=== PATIENT | male | born 1935 | race Caucasian/White ===

== ENCOUNTER 2017-03-04 20:12 | Inpatient (IN) | payer OTHER ==
[~2017-03-04] VITALS: Ht 175.3 cm; Wt 82.1 kg
--- NOTE | ~2017-03-04 | P ---
[facility] [place] [address] PROCEDURE REPORT Name: DOROTHEA ESTRADA Room #: 301-I [facility] IN M.R.#: [id number] Admission: 03/04/17 Attend Phys: Carl Arana MD Discharge: 03/06/17 Date of : 36 Report #: [id number] THIS REPORT FOR: //name// CC: Carl Arana MD BRIEF HISTORY: The patient is an 82-year-old male who developed black stools and also had episode of coffee-ground emesis. He presented to [facility] and there he was admitted and now presents for upper endoscopy to evaluate for GI bleeding. He has a history of previous GI bleeding with antral ulcers. PREOPERATIVE DIAGNOSIS: Upper gastrointestinal bleeding. POSTOPERATIVE DIAGNOSES: 1. Deep nonbleeding antral ulcer. 2. Superficial linear antral ulcer. 3. Diffuse gastritis. 4. Small hiatus hernia. MEDICATIONS: Deep sedation with propofol per anesthesia. SPECIMEN: Biopsies of linear ulcer, antrum. ESTIMATED BLOOD LOSS: 3 mL. PROCEDURE: EGD with biopsy. FINDINGS: Prior to propofol sedation, procedure of upper endoscopy discussed with the patient as well as potential risks and its complications. He indicates he understands and desires to proceed. DESCRIPTION OF PROCEDURE: With the patient in left lateral decubitus position, the [employer] video endoscope was inserted in the cervical esophagus under direct vision without difficulty. Examination of this organ to its entire length revealed normal mucosa down the squamocolumnar junction. Right at the squamocolumnar junction, there were 2 focal eroded areas on opposite garcia. These changes may be result of reflux esophagitis, although he did vomit and it could represent small Chata-Wylie tears. No clot or bleeding was seen and no vessels were seen. Beyond that it is a small 2 cm sliding type hiatus hernia was seen. The mucosa and the hernia were unremarkable. No blood was seen. Scope was advanced in the stomach, which was examined on end view as well as retroflexed views. Examination of the proximal stomach on end view as well as retroflexed views revealed normal gastric folds. Upon retroflexion, no hiatus hernia was seen. Examination of distal stomach revealed some deformity in the antrum of the stomach and also on the posterior wall of the antrum was a deep nonbleeding gastric ulcer. The crater was less in the size of the scope, so was [facility] [address] [place] [address] PROCEDURE REPORT Name: DOROTHEA ESTRADA Room #: 301-I DIS IN .R.#: [id number] Admission: 03/04/17 Attend Phys: Carl Arana MD Discharge: 03/06/17 Date of : 36 Report #: [id number] probably about 7-8 mm. I could see some whitish exudate, could not clearly see the base of the ulcer. It was fairly deep. It is possible this could be a penetrating ulcer. In addition, just proximal to this ulcer crater was a superficial linear ulcer, which was about 10-12 mm in length and was not bleeding. It had a benign appearance. The pylorus, duodenal bulb and postbulbar sweep down the third portion was inspected and noted to be unremarkable. At that point, the scope was slowly withdrawn and careful circumferential views confirmed the above finding. Biopsies obtained of the linear ulcer but we avoided biopsying around the deep ulcer due to his recent bleeding. DISPOSITION: The patient with upper GI bleeding. He does have a deep ulcer as noted above. We will place him on a proton pump inhibitor. I could not see the base of the ulcer, so I can exclude an exposed vessel or small clot within the crater. Active bleeding was not seen at this time. Since I cannot see the base of the ulcer, I cannot prognosticate with regards to likelihood of recurrent gastrointestinal bleeding. We watched the patient carefully for the next day or two. He will need repeat EGD in 8 weeks to ensure healing of the ulcer. He should stay on a PPI until that exam has been completed. If he does have H. pylori, treatment with antibiotics may "cure" him of his ulcer disease. If he does not have H. pylori, he may require long-term administration of PPI for prophylaxis due to his recurrent GI bleeding. <ELECTRONICALLY SIGNED> By: Roe Sebastian MD 03/08/17 1523 1455 [id number] Roe Sebastian MD /nt
--- NOTE | ~2017-03-04 | S ---
[facility] [place] [address] SURGICAL PATH RPT PROCEDURE Name: DOROTHEA AGUIRRE Room #: 301-I ADM IN M.R.#: [id number] Admission: 03/04/17 Date of : 36 Discharge: Report #: [id number] Path Case #: [id number] PATHOLOGY REPORT COLLECTION DATE: 03/05/2017 RECEIVED DATE: 03/05/2017 SUBMITTING PHYS: Dr. Roe Sebastian OTHER PHYS: SPECIMEN(S) RECEIVED: A.Gastric ulcer * * * * * * * * * * * * FINAL DIAGNOSIS: Gastric mucosa, gastric ulcer to rule out H. pylori, endoscopic biopsy: - Moderate reactive gastropathy. - No active ulceration identified in the sampled tissue. - Negative for intestinal metaplasia or atrophy. - Negative for Helicobacter pylori. (IUV:gerda; 03/06/2017) COMMENT: Helicobacter pylori immunohistochemical stain performed on block A1 - negative. PATHOLOGIST: Ariadna Brandt M.D. REPORT ELECTRONICALLY SIGNED BY: Ariadna Brandt M.D. DATE/TIME: 03/06/2017 15:47 * * * * * * * * * * * * GROSS PATHOLOGY: Received in formalin labeled "Dorothea Aguirre, BX of gastric ulcer to r/o H. pylori," are four segments of gonzalez soft tissue measuring 0.9 x 0.6 x 0.3 cm in aggregate dimensions and ranging from 0.3 to 0.4 cm in maximum dimension. The specimen is submitted entirely in cassette A1. (TSD; 03/05/2017) CLINICAL HISTORY: GI bleed INITIAL CPT CODE(S): A; 82729, 34425 Professional services performed by [facility] at [facility] [address] [place] [address] SURGICAL PATH RPT PROCEDURE Name: DOROTHEA AGUIRRE Room #: 301-I ADM IN M.R.#: [id number] Admission: 03/04/17 Date of : 36 Discharge: Report #: [id number] Path Case #: [id number] [address] [facility] [address], [place] [address] Technical services performed by [facility] at [address] [place] [address], [facility] [address] [address]. [facility] [address] [place] [address] PHONE: [phone] DIRECTOR: Aquiles Hart M.D. * * * END OF REPORT * * *
--- NOTE | ~2017-03-04 | P ---
[facility] [place] [address] PROCEDURE REPORT Name: SEANDOROTHEA PRABHAKAR Room #: 301-I DIS IN M.R.#: [id number] Admission: 03/04/17 Attend Phys: Carl Arana MD Discharge: 03/06/17 Date of : 36 Report #: [id number] THIS REPORT FOR: //name// CC: Carl Arana DATE OF SERVICE: 03/05/2017 ADDENDUM Speaker correcting the patient name wrongly dictated at the end of the report [id number]. <ELECTRONICALLY SIGNED> By: Roe Sebastian MD 03/08/17 1523 1457 1844 Roe Sebastian MD /nt
--- NOTE | ~2017-03-04 | P ---
[facility] [place] [address] PROCEDURE REPORT Name: DOROTHEA ESTRADA Room #: 301-I ADM IN M.R.#: [id number] Admission: 03/04/17 Attend Phys: Carl Arana MD Discharge: Date of : 36 Report #: [id number] THIS REPORT FOR: //name// CC: Carl Arana MD REASON FOR CONSULTATION: The patient is an 82-year-old male with recurrent GI bleeding. HISTORY OF PRESENT ILLNESS: This patient had evidence of GI bleeding in 07/2013. He underwent upper endoscopy by Dr. Lisa Lewis and was found to have multiple small ulcers in the antrum as well as erosions of the duodenum. He was treated and did well. He had been on pantoprazole, but he said he stopped taking that years ago. About a week or so ago, he had teeth pulled. He went to have the teeth pulled but subsequently developed significant bleeding. He had to be seen in the Emergency Room by his oral surgeon about 5 days ago and underwent packing. He reports he has not had any further bleeding since that time. He was well until yesterday when he passed a stool. The stool was normal but subsequently passed several diarrhea type stools that were "leanne than black." He had several of those stools last evening and also some this morning. He developed some dizziness and lightheadedness. He did not lose consciousness. He did break out in sweats and did feel nauseated. He did have one episode of emesis and brought up some blackish material. He contacted Dr. Arana, was advised to come in the Emergency Room, which he did. He was evaluated and his electrolytes were normal and creatinine 1.3, which is his normal range. His BUN was initially 51, is 45 today. Albumin was 2.9. INR 1. White count was initially 15.5, down to 10.2 today. His hemoglobin was 11.9 yesterday, 10.2 this morning. He is feeling comfortable this time. PAST MEDICAL HISTORY: High blood pressure, elevated cholesterol, coronary artery disease with previous stent placement. He had been on Plavix and aspirin. About a month or so ago, he was told he could stop his Plavix but continue 1 baby aspirin daily. He has also had a hiatus hernia repair. ALLERGIES: No known drug allergies. CURRENT HOME MEDICATIONS: Atorvastatin 40 mg daily; in the records is listed Plavix 75 mg daily, but he tells me he stopped it; metoprolol 50 mg daily is listed; pantoprazole is also listed, but he tells me he stopped that. He did tell me he was taking lisinopril. FAMILY HISTORY: No family history of ulcer disease. SOCIAL HISTORY: Quit smoking many many years ago, typically has 1 beer per day. [address] [address] PROCEDURE REPORT Name: DOROTHEA ESTRADA Room #: 301-I ADM IN M.R.#: [id number] Admission: 03/04/17 Attend Phys: Carl Arana MD Discharge: Date of : 36 Report #: [id number] REVIEW OF SYSTEMS: GENERAL: No change in weight, fever or chills. CENTRAL NERVOUS SYSTEM: Dizziness, but not loss of consciousness, weakness or numbness. PULMONARY: No cough, pneumonia or tuberculosis. CARDIOVASCULAR: No recent chest pain, chest tightness or palpitations. GASTROINTESTINAL: Nausea, vomiting, hematemesis and melena, previous bleeding ulcers. MUSCULOSKELETAL: Multiple arthralgias. PHYSICAL EXAMINATION: GENERAL: Well-developed, well-nourished, pleasant male who is awake, alert and oriented, no acute distress. VITAL SIGNS: Blood pressure 118/70, pulse is 68. HEENT: Anicteric. Pupils equal and round. Oropharynx clear. NECK: Supple. CHEST: Clear. HEART: Regular rate and rhythm, normal S1 and S2. ABDOMEN: Normal bowel sounds, soft, nontender without hepatosplenomegaly or masses. RECTAL: Not done. EXTREMITIES: Without cyanosis, clubbing or edema. ASSESSMENT: 1. Recurrent upper gastrointestinal bleeding. 2. Recent bleeding from teeth extraction. 3. Coronary artery disease with stents, on aspirin. 4. High blood pressure. 5. Elevated cholesterol. PLAN: Upper endoscopy for further evaluation of potential source of bleeding. <ELECTRONICALLY SIGNED> By: Roe Sebastian MD 03/05/171854 1407 49 Roe Sebastian MD /nt
[~2017-03-04 20:12] MED LIST: AMLODIPINE-BEN1 EAC3 PO; ASPIRIN EC325 M1 PO; LIPITOR40 MG PO; PLAVIX 75 MG TA75 M1 PO; PROTONIX40 M2; PROTONIX40 M2 PO; TOPROL XL50 MG PO
[2017-03-04 20:15] VITALS: BP 118/70
[2017-03-04 20:33] LABS: BASOPHILS 1.1 % (0.0-2.0); EOSINOPHILS 0.5 % (0.0-3.0); HEMATOCRIT 35.8 % (42.0-52.0); HEMOGLOBIN 11.9 gm/dL (14.0-18.0); LYMPHOCYTES 20.8 % (24.0-44.0); MCH 32.4 pg (26.0-34.0); MCHC 33.2 g/dL (28.0-37.0); MCV 97.6 fL (80.0-100.0); MONOCYTES 6.7 % (1.0-8.0); PLATELET COUNT 278 thou/uL (150-400); POLYS 70.9 % (36.0-66.0); RBC 3.67 mil/uL (4.50-6.00); RDW 14.1 % (10.5-14.5); WBC 15.5 thou/uL (4.0-11.0)
[2017-03-04 20:34] LABS: CALCIUM 8.5 mg/dL (8.5-10.1); CREATININE 1.4 mg/dL (0.7-1.3); POTASSIUM 5.8 mmol/L (3.5-5.1)
[2017-03-04 20:36] LABS: MANUAL DIFF NO
[2017-03-04 20:43] LABS: ALBUMIN 2.9 g/dL (3.4-5.0); TOTAL BILIRUBIN 0.8 mg/dL (<0.1-1.0); TOTAL PROTEIN 6.6 g/dL (6.4-8.2); TROPONIN-I 0.05 ng/mL (<0.04-0.07)
[2017-03-04 20:51] LABS: APTT 24.7 Seconds (24.5-32.8); PROTIME 10.5 Seconds (9.3-11.4)
[2017-03-04 22:56] VITALS: BP 113/59
[2017-03-05 00:16] LABS: CALCIUM 7.9 mg/dL (8.5-10.1); CREATININE 1.2 mg/dL (0.7-1.3)
[2017-03-05 00:19] LABS: POTASSIUM 4.1 mmol/L (3.5-5.1)
[2017-03-05 04:00] VITALS: BP 124/88
[2017-03-05 08:00] VITALS: BP 132/57
[2017-03-05 09:34] LABS: HEMATOCRIT 30.8 % (42.0-52.0); HEMOGLOBIN 10.2 gm/dL (14.0-18.0); MCH 32.4 pg (26.0-34.0); MCHC 33.2 g/dL (28.0-37.0); MCV 97.7 fL (80.0-100.0); RBC 3.15 mil/uL (4.50-6.00); RDW 13.9 % (10.5-14.5); WBC 10.2 thou/uL (4.0-11.0)
[2017-03-05 09:38] LABS: CALCIUM 8.2 mg/dL (8.5-10.1); CREATININE 1.3 mg/dL (0.7-1.3)
[2017-03-05 16:00] VITALS: BP 126/61
[2017-03-05 19:21] VITALS: BP 132/61
[2017-03-06 04:02] VITALS: BP 113/55
[2017-03-06 06:38] LABS: HEMATOCRIT 25.4 % (42.0-52.0); HEMOGLOBIN 8.6 gm/dL (14.0-18.0); MCH 32.7 pg (26.0-34.0); MCHC 33.8 g/dL (28.0-37.0); MCV 96.6 fL (80.0-100.0); RBC 2.63 mil/uL (4.50-6.00); RDW 13.8 % (10.5-14.5); WBC 7.6 thou/uL (4.0-11.0)
[2017-03-06 08:08] VITALS: BP 143/62
[2017-03-06 08:09] VITALS: BP 143/62
[2017-03-06] MEDS ORDERED: LISINOPRIL10 MG PO (09:56)
[2017-03-06] MEDS ORDERED: COREG6.25 MG PO (09:58)
[2017-03-06] MEDS ORDERED: ASPIR 8181 MG PO (09:58)
[2017-03-06] MEDS ORDERED: PROTONIX40 M2 PO (16:13)
[2017-03-06 16:30] VITALS: BP 143/62
== END 2017-03-06 16:53 | disposition home or self-care (01) | DRG 378 ==
LOC: ER 20:12 → EROBS 22:05 → 3N 22:05
PROVIDERS: Emergency Medicine; Family Medicine
PROC: 0DB68ZX Excision of Stomach, Via Natural or Artificial Opening Endoscopic, Diagnostic (ICD-10-PCS; principal; 2017-03-05)
DX: K92.1 Melena (principal); E44.0 Moderate protein-calorie malnutrition; K25.9 Gastric ulcer, unspecified as acute or chronic, without hemorrhage or perforation; K29.70 Gastritis, unspecified, without bleeding; E78.00 Pure hypercholesterolemia, unspecified; I25.10 Atherosclerotic heart disease of native coronary artery without angina pectoris; K44.9 Diaphragmatic hernia without obstruction or gangrene; D64.9 Anemia, unspecified; I25.2 Old myocardial infarction; Z87.891 Personal history of nicotine dependence; Z95.5 Presence of coronary angioplasty implant and graft
CPT/HCPCS: 10096; 62110; 62900; 70005

== ENCOUNTER → 2020-02-23 | Outpatient (CLI) | payer OTHER ==
[~2020-02-23] MED LIST changes: +ASPIR 8181 MG PO; +COREG6.25 MG PO; +LISINOPRIL10 MG PO
== END ==
LOC: MRI 09:54
PROVIDERS: ATTEND Family Medicine
DX: M43.16 Spondylolisthesis, lumbar region (principal); N28.1 Cyst of kidney, acquired; M51.25 Other intervertebral disc displacement, thoracolumbar region; M48.07 Spinal stenosis, lumbosacral region; M51.36 Other intervertebral disc degeneration, lumbar region; M54.42 Lumbago with sciatica, left side

== ENCOUNTER → 2020-03-24 | Outpatient (CLI) | payer OTHER ==
[~2020-03-24] VITALS: Ht 175.3 cm; Wt 81.6 kg
[~2020-03-24] MED LIST changes: +ACETAMINOPHEN500 M1 PO; +ASA81BEC PO
--- NOTE | ~2020-03-24 | HPC ---
[facility] [place] [address] [place] [address] PAIN MANAGEMENT CONSULTATION Name: DOROTHEA ESTRADA Room #: [facility] Ayde.#: [id number] Admission: 03/24/20 Attend Phys: Dorothea Wylie MD Discharge: Date of : 36 Report #: [id number] THIS REPORT FOR: cc: Carl Arana MD, Neal A. MD Morgan, Richard L. MD ~ CC: Carl Wylie DATE OF SERVICE: 03/24/2020 CHIEF COMPLAINT: Low back pain radiating into the left leg. Large herniated nucleus pulposus, L4-L5. I am seeing the patient today at the request of Dr. Arana for lumbar radiculopathy on the left. Unlike many patients his pain generator is quite evident and is concordant with his MRI. The MRI performed on 02/23/2020 shows a grade 1 spondylolisthesis at L4-L5 with a large fragment of disk along the left side at the posterior aspect of the L4 vertebral body. This measures about 14 mm x 18 mm and appears to originate from the left L4-L5 disk space causing spinal stenosis and narrowing of the canal to about 5 mm. He is doing okay without weakness or numbness, but has pain with standing and walking. He gets some relief with lying down and sitting. He appears to be fairly stoic 85-year-old who has always been active. He tells me even in the summer, he was jogging! not long just 30 minutes, wow. His pain score today is a 3-5/10. Pain drawing is classic for an L4-L5 radiculopathy. MEDICATIONS: Aspirin, lisinopril, carvedilol, atorvastatin, and Tylenol 3 times daily. ALLERGIES: None. PAST MEDICAL HISTORY: Positive for hypertension. He had stents placed for coronary artery disease and on blood thinner for a period of time. His first angioplasty was in 1993! He has a second stent placed in 2013. He does not complain of chest pain at this time. He had a stroke in 1999, described as a TIA. He has also had peptic ulcer that were bleeding at one point. No problems at this time. REVIEW OF SYSTEMS: Positive for history of cataracts, cardiac stents, peptic ulcer disease, nocturia. Impacted pain score is a low 21/70. Functional goals are to be free of back and leg pain. Resume normal activities and walk up to 5 miles. [facility] [address] [place] [address] PAIN MANAGEMENT CONSULTATION Name: DOROTHEA ESTRADA Room #: [facility] Ayde#: [id number] Admission: 03/24/20 Attend Phys: Dorothea Wylie MD Discharge: Date of : 36 Report #: [id number] PHYSICAL EXAMINATION: GENERAL: He is a healthy appearing 85-year-old pleasant, alert and oriented. VITAL SIGNS: Blood pressure is 160/92, heart rate 76, respirations 14. HEENT: Normal. Pupils equal, round, react to light. EOMs are intact. Mucous membranes are moist. NECK: Supple. CHEST: Clear to auscultation. CARDIAC: Rhythm is regular. I could not appreciate a murmur. MUSCULOSKELETAL: Demonstrates some tenderness across the low back. Mild pain with forward flexion and extension. Negative straight leg raising. Tenderness along the L4-L5 distribution. No loss of strength in lower extremities. Deep tendon reflexes are ____ 1+ at knees and ankles. IMPRESSION: Lumbar radiculopathy secondary to large herniated nucleus pulposus at L4-L5, where he has a grade 1 spondylolisthesis. Given his lack of weakness and continued decent function with only modest pain, I think it is reasonable to give him some time to see if this disk fragment will reabsorb ____. The nucleus often times seems to shrink overtime and this is relatively subacute dating back until January. An epidural steroid injection may provide some help with pain as we wait this out. Potential risks and benefits were reviewed. He is anxious to proceed. PROCEDURE: Epidural steroid injection. After informed consent, he was taken to the fluoroscopic suite, placed prone, skin prepped with ChloraPrep. Skin anesthetized, left of midline at L3-L4 above the level of his stenosis. A 20-gauge Tuohy epidural needle was advanced in the epidural space with loss of resistance technique. There was no blood or CSF aspirated. A 1 mL of Omnipaque injected. Spread of dye was seen along the left lateral recess cephalad and caudad direction and was then followed by 3 mL of 0.5% lidocaine mixed with 80 mg of triamcinolone. He tolerated the procedure well. There were no complications. He was taken to recovery room for observation and followup visit planned as needed in 1 month. May repeat the injection if necessary for some pain relief. By: 1358 1446 Dorothea Wylie MD /nt
[2020-03-24 12:54] VITALS: BP 160/92
--- NOTE | 2020-03-24 13:19 | NUR ---
Pain Clinic Assessment: 1. History of Osteoarthritis: djd back History of Rheumatoid Arthritis: Not Applicable 2. Height: 5 ft. 9 in. 175.3 cm. Weight: 180.0 lb. oz. 81.648 kg. Patient's BMI: 26.6 3. Vital Signs: BP: 160/92 Pulse: 76 Resp: 14 Temp: 02 Sat: 98 ECG Mon: 4. Pain Intensity: 3 5. Fall Risk: Dizziness: N Needs help standing or walking: N Fallen in the last 3 months: N Fall risk comments: 6. Patient on Blood Thinner: None 7. History of Hypertension: Y 8. Opioid Therapy greater than 6 weeks: N Opiate Contract Signed: 9. Risk Assessment Tool Provided: LOW RISK 10. Functional Assessment Tool: 11. Recreational Drug Use: Never Drug Type: Tobacco Use: Never Smoker Tobacco Type: Amount or Packs/day: How Many Years: Alcohol Use: Yes Frequency: Daily Quant: 1-2
== END ==
LOC: PAIN 06:54
PROVIDERS: ATTEND Anesthesiology Pain Medicine
DX: M54.5 Low back pain (principal); M43.16 Spondylolisthesis, lumbar region; M54.16 Radiculopathy, lumbar region; Z79.82 Long term (current) use of aspirin; Z79.899 Other long term (current) drug therapy; Z98.890 Other specified postprocedural states

== ENCOUNTER → 2020-09-22 | Outpatient (CLI) | payer OTHER ==
[~2020-09-22] VITALS: Ht 172.7 cm; Wt 76.7 kg
[~2020-09-22] MED LIST changes: +CELEBREX 200 M200 MG PO; +HYDROCODON-ACE1 EAC7 PO
[2020-09-22 10:36] VITALS: BP 145/78
--- NOTE | 2020-09-22 10:43 | NUR ---
Pain Clinic Assessment: 1. History of Osteoarthritis: BACK History of Rheumatoid Arthritis: Not Applicable 2. Height: 5 ft. 8 in. 172.7 cm. Weight: 169.0 lb. oz. 76.658 kg. Patient's BMI: 25.7 3. Vital Signs: BP: 145/78 Pulse: 73 Resp: 16 Temp: 02 Sat: 97 ECG Mon: 4. Pain Intensity: 4 5. Fall Risk: Dizziness: N Needs help standing or walking: N Fallen in the last 3 months: N Fall risk comments: 6. Patient on Blood Thinner: None 7. History of Hypertension: Y 8. Opioid Therapy greater than 6 weeks: N Opiate Contract Signed: 9. Risk Assessment Tool Provided: LOW RISK 10. Functional Assessment Tool: 11. Recreational Drug Use: Never Drug Type: Tobacco Use: Never Smoker Tobacco Type: Amount or Packs/day: How Many Years: Alcohol Use: Yes Frequency: Daily Quant: 1 BEER
== END ==
LOC: PAIN 06:52
PROVIDERS: ATTEND Anesthesiology Pain Medicine
DX: M54.16 Radiculopathy, lumbar region (principal); M79.10 Myalgia, unspecified site; M43.10 Spondylolisthesis, site unspecified; Z88.8 Allergy status to other drugs, medicaments and biological substances; Z79.899 Other long term (current) drug therapy

== ENCOUNTER → 2020-09-26 | Outpatient (CLI) | payer OTHER ==
[~2020-09-26] VITALS: Ht 172.7 cm; Wt 76.2 kg
[~2020-09-26] MED LIST changes: +ENDOCET 7.5-321 EACH PO
[2020-09-26 12:38] VITALS: BP 147/69
--- NOTE | 2020-09-26 12:41 | NUR ---
Pain Clinic Assessment: 1. History of Osteoarthritis: BACK History of Rheumatoid Arthritis: Not Applicable 2. Height: 5 ft. 8 in. 172.7 cm. Weight: 168.0 lb. oz. 76.204 kg. Patient's BMI: 25.6 3. Vital Signs: BP: 147/69 Pulse: 85 Resp: 16 Temp: 02 Sat: 95 ECG Mon: 4. Pain Intensity: 6 5. Fall Risk: Dizziness: N Needs help standing or walking: N Fallen in the last 3 months: N Fall risk comments: 6. Patient on Blood Thinner: None 7. History of Hypertension: Y 8. Opioid Therapy greater than 6 weeks: N Opiate Contract Signed: 9. Risk Assessment Tool Provided: LOW RISK 10. Functional Assessment Tool: 11. Recreational Drug Use: Never Drug Type: Tobacco Use: Never Smoker Tobacco Type: Amount or Packs/day: How Many Years: Alcohol Use: Yes Frequency: Daily Quant: 1
== END | disposition home or self-care (01) ==
LOC: PAIN 06:50
PROVIDERS: ATTEND Anesthesiology Pain Medicine
DX: M47.22 Other spondylosis with radiculopathy, cervical region (principal); M43.16 Spondylolisthesis, lumbar region; G89.29 Other chronic pain; Z98.890 Other specified postprocedural states; Z79.899 Other long term (current) drug therapy

== ENCOUNTER → 2020-10-20 | Outpatient (CLI) | payer OTHER ==
[~2020-10-20] VITALS: Ht 172.7 cm; Wt 71.2 kg
[~2020-10-20] MED LIST changes: +MIRALAX119 GM PO; +SENOKOT-S1 TA2 PO
[2020-10-20 14:10] VITALS: BP 131/79
--- NOTE | 2020-10-20 14:28 | NUR ---
Pain Clinic Assessment: 1. History of Osteoarthritis: BACK History of Rheumatoid Arthritis: Not Applicable 2. Height: 5 ft. 8 in. 172.7 cm. Weight: 157.0 lb. oz. 71.215 kg. Patient's BMI: 23.9 3. Vital Signs: BP: 131/79 Pulse: 88 Resp: 20 Temp: 02 Sat: 98 ECG Mon: 4. Pain Intensity: 4-5 5. Fall Risk: Dizziness: N Needs help standing or walking: N Fallen in the last 3 months: N Fall risk comments: 6. Patient on Blood Thinner: None 7. History of Hypertension: Y 8. Opioid Therapy greater than 6 weeks: N Opiate Contract Signed: 9. Risk Assessment Tool Provided: LOW RISK 10. Functional Assessment Tool: 11. Recreational Drug Use: Never Drug Type: Tobacco Use: Never Smoker Tobacco Type: Amount or Packs/day: How Many Years: Alcohol Use: Yes Frequency: Quant:
== END ==
LOC: PAIN 07:00
PROVIDERS: ATTEND Clinical Nurse Specialist Adult Health
DX: M43.16 Spondylolisthesis, lumbar region (principal); M47.26 Other spondylosis with radiculopathy, lumbar region; F11.20 Opioid dependence, uncomplicated; Z88.8 Allergy status to other drugs, medicaments and biological substances; Z79.899 Other long term (current) drug therapy

== ENCOUNTER → 2020-10-21 | Outpatient (CLI) | payer OTHER | LOC: RAD 15:00 | PROVIDERS: ATTEND Specialist | DX: M47.816 Spondylosis without myelopathy or radiculopathy, lumbar region (principal); M53.86 Other specified dorsopathies, lumbar region; M48.07 Spinal stenosis, lumbosacral region; G89.29 Other chronic pain; M43.16 Spondylolisthesis, lumbar region; I70.0 Atherosclerosis of aorta ==

== ENCOUNTER → 2020-10-27 | Outpatient (CLI) | payer OTHER | LOC: MRI 06:13 | PROVIDERS: ATTEND Physician Assistant | DX: M51.16 Intervertebral disc disorders with radiculopathy, lumbar region (principal); M48.061 Spinal stenosis, lumbar region without neurogenic claudication; M48.56XA Collapsed vertebra, not elsewhere classified, lumbar region, initial encounter for fracture; M48.54XA Collapsed vertebra, not elsewhere classified, thoracic region, initial encounter for fracture; M47.816 Spondylosis without myelopathy or radiculopathy, lumbar region; M25.78 Osteophyte, vertebrae ==

== ENCOUNTER → 2020-11-03 | Outpatient (CLI) | payer OTHER ==
[~2020-11-03] VITALS: Ht 172.7 cm; Wt 78.9 kg
[2020-11-03 11:37] VITALS: BP 149/82
[2020-11-03 12:52] LABS: HEMATOCRIT 41.3 % (42.0-52.0); HEMOGLOBIN 13.5 gm/dL (14.0-18.0); MCH 30.9 pg (26.0-34.0); MCHC 32.6 g/dL (28.0-37.0); MCV 94.8 fL (80.0-100.0); RBC 4.36 mil/uL (4.50-6.00); RDW 15.6 % (10.5-14.5); WBC 12.5 thou/uL (4.0-11.0)
== END | disposition home or self-care (01) ==
LOC: CATH 09:44
PROVIDERS: ATTEND Nuclear Medicine Nuclear Cardiology
DX: M54.9 Dorsalgia, unspecified (principal); M80.08XA Age-related osteoporosis with current pathological fracture, vertebra(e), initial encounter for fracture; I10 Essential (primary) hypertension; I25.2 Old myocardial infarction; Z98.890 Other specified postprocedural states; Z79.899 Other long term (current) drug therapy; Z87.891 Personal history of nicotine dependence; Z86.73 Personal history of transient ischemic attack (TIA), and cerebral infarction without residual deficits; Z79.82 Long term (current) use of aspirin

== ENCOUNTER → 2020-11-10 | Outpatient (CLI) | payer OTHER ==
[2020-11-10 14:52] LABS: CREATININE 1.2 mg/dL (0.7-1.3)
== END ==
LOC: MRI 14:06
PROVIDERS: ATTEND Specialist
DX: S22.088A Other fracture of T11-T12 vertebra, initial encounter for closed fracture (principal); M48.061 Spinal stenosis, lumbar region without neurogenic claudication; N28.1 Cyst of kidney, acquired; M48.56XA Collapsed vertebra, not elsewhere classified, lumbar region, initial encounter for fracture; M43.8X6 Other specified deforming dorsopathies, lumbar region; X58.XXXA Exposure to other specified factors, initial encounter; Y93.89 Activity, other specified; Y92.89 Other specified places as the place of occurrence of the external cause; Y99.8 Other external cause status; M51.36 Other intervertebral disc degeneration, lumbar region

== ENCOUNTER → 2020-11-21 | Outpatient (CLI) | payer OTHER ==
[~2020-11-21] VITALS: Ht 172.7 cm; Wt 70.3 kg
[~2020-11-21] MED LIST changes: +OXYCODON-ACETA1 EAC1 PO
[2020-11-21 14:03] VITALS: BP 149/102
== END | disposition home or self-care (01) ==
LOC: CATH 12:54
PROVIDERS: ATTEND Nuclear Medicine Nuclear Cardiology
DX: M54.9 Dorsalgia, unspecified (principal); M80.08XA Age-related osteoporosis with current pathological fracture, vertebra(e), initial encounter for fracture; I10 Essential (primary) hypertension; I25.2 Old myocardial infarction; Z98.890 Other specified postprocedural states; Z79.899 Other long term (current) drug therapy; Z86.73 Personal history of transient ischemic attack (TIA), and cerebral infarction without residual deficits; Z79.82 Long term (current) use of aspirin

== ENCOUNTER → 2020-11-24 | Outpatient (CLI) | payer OTHER ==
[~2020-11-24] VITALS: Ht 170.2 cm; Wt 69.5 kg
[2020-11-24 13:49] VITALS: BP 148/95
--- NOTE | 2020-11-24 14:02 | NUR ---
Pain Clinic Assessment: 1. History of Osteoarthritis: BACK History of Rheumatoid Arthritis: Not Applicable 2. Height: 5 ft. 7 in. 170.2 cm. Weight: 153.2 lb. oz. 69.491 kg. Patient's BMI: 24.0 3. Vital Signs: BP: 148/95 Pulse: 118 Resp: 16 Temp: 02 Sat: 99 ECG Mon: 4. Pain Intensity: 2-3 5. Fall Risk: Dizziness: N Needs help standing or walking: N Fallen in the last 3 months: N Fall risk comments: 6. Patient on Blood Thinner: None 7. History of Hypertension: Y 8. Opioid Therapy greater than 6 weeks: N Opiate Contract Signed: 9. Risk Assessment Tool Provided: LOW RISK 10. Functional Assessment Tool: 11. Recreational Drug Use: Never Drug Type: Tobacco Use: Never Smoker Tobacco Type: Amount or Packs/day: How Many Years: Alcohol Use: No Frequency: Quant:
== END ==
LOC: PAIN 09:26
PROVIDERS: ATTEND Clinical Nurse Specialist Adult Health
DX: M47.26 Other spondylosis with radiculopathy, lumbar region (principal); M43.16 Spondylolisthesis, lumbar region; M48.54XA Collapsed vertebra, not elsewhere classified, thoracic region, initial encounter for fracture; F11.20 Opioid dependence, uncomplicated; Z79.899 Other long term (current) drug therapy

== ENCOUNTER → 2021-02-27 | Outpatient (CLI) | payer OTHER ==
[~2021-02-27] VITALS: Ht 170.2 cm; Wt 64.5 kg
[~2021-02-27] MED LIST changes: +ACTONEL 35 MG35 M1 PO; +APAP W/CODEINE1 TA2 PO; +ELIQUIS5 MG PO; +FUROSEMIDE 40 M40 M1 PO; +SPIRONOLACTONE25 MG PO
[2021-02-27 09:21] VITALS: BP 116/75
--- NOTE | 2021-02-27 09:33 | NUR ---
Pain Clinic Assessment: 1. History of Osteoarthritis: BACK History of Rheumatoid Arthritis: Not Applicable 2. Height: 5 ft. 7 in. 170.2 cm. Weight: 142.2 lb. oz. 64.501 kg. Patient's BMI: 22.3 3. Vital Signs: BP: 116/75 Pulse: 80 Resp: 16 Temp: 02 Sat: 100 ECG Mon: 4. Pain Intensity: 1 TO 6 5. Fall Risk: Dizziness: N Needs help standing or walking: N Fallen in the last 3 months: Y Fall risk comments: 6. Patient on Blood Thinner: Y 7. History of Hypertension: Y 8. Opioid Therapy greater than 6 weeks: Y Opiate Contract Signed: 9. Risk Assessment Tool Provided: LOW RISK 10. Functional Assessment Tool: 11. Recreational Drug Use: Never Drug Type: Tobacco Use: Never Smoker Tobacco Type: Amount or Packs/day: How Many Years: Alcohol Use: Yes Frequency: Daily Quant: 1
== END ==
LOC: PAIN 06:59
PROVIDERS: ATTEND Anesthesiology Pain Medicine
DX: M47.26 Other spondylosis with radiculopathy, lumbar region (principal); M43.16 Spondylolisthesis, lumbar region; F10.10 Alcohol abuse, uncomplicated; Z68.22 Body mass index [BMI] 22.0-22.9, adult; Z79.891 Long term (current) use of opiate analgesic; Z79.899 Other long term (current) drug therapy

== ENCOUNTER → 2021-03-03 | Outpatient (CLI) | payer OTHER ==
[~2021-03-03] VITALS: Ht 170.2 cm; Wt 64.4 kg
--- NOTE | 2021-03-03 10:09 | NUR ---
Pain Clinic Assessment: 1. History of Osteoarthritis: BACK History of Rheumatoid Arthritis: Not Applicable 2. Height: ft. in. cm. Weight: lb. oz. kg. Patient's BMI: 3. Vital Signs: BP: Pulse: Resp: Temp: 02 Sat: ECG Mon: 4. Pain Intensity: 0-2 5. Fall Risk: Dizziness: N Needs help standing or walking: N Fallen in the last 3 months: Y Fall risk comments: 6. Patient on Blood Thinner: Y 7. History of Hypertension: Y 8. Opioid Therapy greater than 6 weeks: Y Opiate Contract Signed: 9. Risk Assessment Tool Provided: LOW RISK 10. Functional Assessment Tool: 11. Recreational Drug Use: Never Drug Type: Tobacco Use: Never Smoker Tobacco Type: Amount or Packs/day: How Many Years: Alcohol Use: Yes Frequency: Daily Quant: 1 BEER A DAY
[2021-03-03 10:10] VITALS: BP 115/50
--- NOTE | 2021-03-03 10:19 | NUR ---
Pain Clinic Assessment: 1. History of Osteoarthritis: BACK History of Rheumatoid Arthritis: Not Applicable 2. Height: 5 ft. 7 in. 170.2 cm. Weight: 142.0 lb. oz. 64.411 kg. Patient's BMI: 22.2 3. Vital Signs: BP: 115/50 Pulse: 66 Resp: 16 Temp: 02 Sat: 100 ECG Mon: 4. Pain Intensity: 0-2 5. Fall Risk: Dizziness: N Needs help standing or walking: N Fallen in the last 3 months: Y Fall risk comments: 6. Patient on Blood Thinner: Y 7. History of Hypertension: Y 8. Opioid Therapy greater than 6 weeks: Y Opiate Contract Signed: 9. Risk Assessment Tool Provided: LOW RISK 10. Functional Assessment Tool: 11. Recreational Drug Use: Never Drug Type: Tobacco Use: Never Smoker Tobacco Type: Amount or Packs/day: How Many Years: Alcohol Use: Yes Frequency: Daily Quant: 1 BEER A DAY
== END | disposition home or self-care (01) ==
LOC: PAIN 07:16
PROVIDERS: ATTEND Anesthesiology Pain Medicine
DX: M47.26 Other spondylosis with radiculopathy, lumbar region (principal); M43.16 Spondylolisthesis, lumbar region; I10 Essential (primary) hypertension; I25.2 Old myocardial infarction; Z98.890 Other specified postprocedural states; Z79.899 Other long term (current) drug therapy; Z86.73 Personal history of transient ischemic attack (TIA), and cerebral infarction without residual deficits; Z79.01 Long term (current) use of anticoagulants

== ENCOUNTER → 2021-03-20 | Outpatient (CLI) | payer OTHER ==
[~2021-03-20] VITALS: Ht 170.2 cm; Wt 63.1 kg
[~2021-03-20] MED LIST changes: +CARVEDILOL12.5 MG PO; +TRAMADOL 50 MG50 MG PO
[2021-03-20 09:37] VITALS: BP 149/77
--- NOTE | 2021-03-20 09:47 | NUR ---
Pain Clinic Assessment: 1. History of Osteoarthritis: BACK History of Rheumatoid Arthritis: Not Applicable 2. Height: 5 ft. 7 in. 170.2 cm. Weight: 139.2 lb. oz. 63.141 kg. Patient's BMI: 21.8 3. Vital Signs: BP: 149/77 Pulse: 72 Resp: 16 Temp: 02 Sat: 98 ECG Mon: 4. Pain Intensity: 2 5. Fall Risk: Dizziness: N Needs help standing or walking: N Fallen in the last 3 months: N Fall risk comments: 6. Patient on Blood Thinner: Y 7. History of Hypertension: Y 8. Opioid Therapy greater than 6 weeks: Y Opiate Contract Signed: 9. Risk Assessment Tool Provided: LOW RISK 10. Functional Assessment Tool: 11. Recreational Drug Use: Never Drug Type: Tobacco Use: Never Smoker Tobacco Type: Amount or Packs/day: How Many Years: Alcohol Use: Yes Frequency: Daily Quant: 1 BEER A DAY
== END ==
LOC: PAIN 08:40
PROVIDERS: ATTEND Anesthesiology Pain Medicine
DX: M47.816 Spondylosis without myelopathy or radiculopathy, lumbar region (principal); M48.061 Spinal stenosis, lumbar region without neurogenic claudication; I10 Essential (primary) hypertension; Z79.899 Other long term (current) drug therapy; Z79.891 Long term (current) use of opiate analgesic; Z72.89 Other problems related to lifestyle

== ENCOUNTER → 2021-05-15 | Outpatient (CLI) | payer OTHER ==
[~2021-05-15] VITALS: Ht 170.2 cm; Wt 66.2 kg
[2021-05-15 12:27] VITALS: BP 138/82
--- NOTE | 2021-05-15 12:38 | NUR ---
Pain Clinic Assessment: 1. History of Osteoarthritis: BACK History of Rheumatoid Arthritis: Not Applicable 2. Height: 5 ft. 7 in. 170.2 cm. Weight: 146.0 lb. oz. 66.225 kg. Patient's BMI: 22.9 3. Vital Signs: BP: 138/82 Pulse: 90 Resp: 14 Temp: 02 Sat: 97 ECG Mon: 4. Pain Intensity: 5-6 5. Fall Risk: Dizziness: N Needs help standing or walking: N Fallen in the last 3 months: N Fall risk comments: 6. Patient on Blood Thinner: ELIQUIS 7. History of Hypertension: Y 8. Opioid Therapy greater than 6 weeks: Y Opiate Contract Signed: 9. Risk Assessment Tool Provided: LOW RISK 10. Functional Assessment Tool: 11. Recreational Drug Use: Never Drug Type: Tobacco Use: Never Smoker Tobacco Type: Amount or Packs/day: How Many Years: Alcohol Use: Yes Frequency: Quant:
== END ==
LOC: PAIN 09:38
PROVIDERS: ATTEND Anesthesiology Pain Medicine
DX: G89.29 Other chronic pain (principal); M48.062 Spinal stenosis, lumbar region with neurogenic claudication; M43.16 Spondylolisthesis, lumbar region; M54.16 Radiculopathy, lumbar region

== ENCOUNTER → 2021-08-10 | Outpatient (CLI) | payer OTHER ==
[~2021-08-10] VITALS: Ht 170.2 cm; Wt 66.3 kg
[2021-08-10 13:04] VITALS: BP 134/76
--- NOTE | 2021-08-10 13:09 | NUR ---
Pain Clinic Assessment: 1. History of Osteoarthritis: BACK History of Rheumatoid Arthritis: Not Applicable 2. Height: 5 ft. 7 in. 170.2 cm. Weight: 146.2 lb. oz. 66.316 kg. Patient's BMI: 22.9 3. Vital Signs: BP: 134/76 Pulse: 81 Resp: 16 Temp: 02 Sat: 94 ECG Mon: 4. Pain Intensity: 2 5. Fall Risk: Dizziness: N Needs help standing or walking: N Fallen in the last 3 months: N Fall risk comments: 6. Patient on Blood Thinner: ELIQUIS 7. History of Hypertension: Y 8. Opioid Therapy greater than 6 weeks: Y Opiate Contract Signed: 9. Risk Assessment Tool Provided: LOW RISK 10. Functional Assessment Tool: 11. Recreational Drug Use: Never Drug Type: Tobacco Use: Never Smoker Tobacco Type: Amount or Packs/day: How Many Years: Alcohol Use: Yes Frequency: Daily Quant: 1
== END ==
LOC: PAIN 07:01
PROVIDERS: ATTEND Clinical Nurse Specialist Adult Health
DX: G89.29 Other chronic pain (principal); M47.26 Other spondylosis with radiculopathy, lumbar region; M48.061 Spinal stenosis, lumbar region without neurogenic claudication; Z79.899 Other long term (current) drug therapy

== ENCOUNTER → 2021-08-28 | Outpatient (CLI) | payer OTHER ==
[~2021-08-28] VITALS: Ht 170.2 cm; Wt 68.8 kg
[2021-08-28 12:49] VITALS: BP 121/72
--- NOTE | 2021-08-28 12:55 | NUR ---
Pain Clinic Assessment: 1. History of Osteoarthritis: BACK History of Rheumatoid Arthritis: Not Applicable 2. Height: 5 ft. 7 in. 170.2 cm. Weight: 151.6 lb. oz. 68.765 kg. Patient's BMI: 23.7 3. Vital Signs: BP: 121/72 Pulse: 77 Resp: 20 Temp: 02 Sat: 96 ECG Mon: 4. Pain Intensity: REST 0 MOVEMENT 2-4 5. Fall Risk: Dizziness: N Needs help standing or walking: N Fallen in the last 3 months: N Fall risk comments: 6. Patient on Blood Thinner: KERRIE 7. History of Hypertension: Y 8. Opioid Therapy greater than 6 weeks: Y Opiate Contract Signed: 9. Risk Assessment Tool Provided: LOW RISK 10. Functional Assessment Tool: 11. Recreational Drug Use: Never Drug Type: Tobacco Use: Never Smoker Tobacco Type: Amount or Packs/day: How Many Years: Alcohol Use: Yes Frequency: Daily Quant: BEER DAILY
== END | disposition home or self-care (01) ==
LOC: PAIN 10:21
PROVIDERS: ATTEND Anesthesiology Pain Medicine
DX: M54.16 Radiculopathy, lumbar region (principal); M43.16 Spondylolisthesis, lumbar region; G89.29 Other chronic pain; I10 Essential (primary) hypertension; Z98.890 Other specified postprocedural states; Z79.899 Other long term (current) drug therapy